=== PATIENT | male | born 1975 | race American Indian/Alaskan Native ===

== ENCOUNTER 2021-08-29 13:18 | Emergency (ER) | payer SELFPAY ==
[2021-08-29 13:44] VITALS: BP 149/87
--- NOTE | 2021-08-29 15:35 | Emergency Department Report ---
ED Dizziness HPI - General Chief Complaint: Headache Stated Complaint: HEADACHE Source: patient Mode of arrival: Ambulatory Limitations: No Limitations - History of Present Illness Initial Comments: Patient is a pleasant 46-year-old who comes to the ER complaining of dizziness. He states that it has been increasing over the last 9 days since his doctor increased his Coreg to 25 mg daily. He denies chest pain or shortness of breath. He got dizzy at work so they sent him home. MD Complaint: dizziness -: Gradual, days(s) Timing: gradual onset Description: other (Worse when changing position from lying to standing) History of Same: No History of Trauma: No Severity: mild Improves With: remaining still Worsens With: other (Standing) Associated Symptoms: denies other symptoms - Related Data Allergies Allergy/AdvReac Type Severity Reaction Status Date / Time No Known Allergies Allergy Verified 08/29/21 13:44 ED Review of Systems ROS: Stated complaint: HEADACHE Other details as noted in HPI Comment: All other systems reviewed and negative ED Past Medical Hx - Past Medical History Hx Hypertension: Yes - Surgical History Past Surgical History?: No - Family History Family history: no significant - Social History Smoking Status: Never Smoker Substance Use Type: None ED Physical Exam - General Limitations: No Limitations General appearance: alert, in no apparent distress - Head Head exam: Present: atraumatic, normocephalic - Eye Eye exam: Present: normal appearance - ENT ENT exam: Present: mucous membranes moist - Neck Neck exam: Present: normal inspection - Respiratory Respiratory exam: Present: normal lung sounds bilaterally. Absent: respiratory distress - Cardiovascular Cardiovascular Exam: Present: regular rate, normal rhythm. Absent: systolic murmur, diastolic murmur, rubs, gallop - GI/Abdominal GI/Abdominal exam: Present: soft, normal bowel sounds - Rectal Rectal exam: Present: deferred - Extremities Exam Extremities exam: Present: normal inspection - Back Exam Back exam: Present: normal inspection - Neurological Exam Neurological exam: Present: alert, oriented X3 - Psychiatric Psychiatric exam: Present: normal affect, normal mood - Skin Skin exam: Present: warm, dry, intact, normal color. Absent: rash ED Course Vital Signs 08/29/21 13:43 Temperature 98.7 F Pulse Rate 64 Respiratory 16 Rate Blood Pressure 149/87 [Right] O2 Sat by Pulse 98 Oximetry - Reevaluation(s) Reevaluation #1: 08/29/21 16:26 COREG 25 DAILY ED Medical Decision Making - Lab Data Result diagrams: 08/29/21 16:09 - EKG Data EKG shows normal: sinus rhythm Rate: normal - EKG Data When compared to previous EKG there are: no significant change Interpretation: no acute changes - Medical Decision Making Lab Results 08/29/21 Range/Units 16:09 WBC 4.2 L (4.5-11.0) K/mm3 RBC 4.91 (3.65-5.03) M/mm3 Hgb 13.8 (11.8-15.2) gm/dl Hct 42.0 (35.5-45.6) % MCV 86 (84-94) fl MCH 28 (28-32) pg MCHC 33 (32-34) % RDW 13.6 (13.2-15.2) % Plt Count 189 (140-440) K/mm3 Vital Signs 08/29/21 13:43 Temperature 98.7 F Pulse Rate 64 Respiratory 16 Rate Blood Pressure 149/87 [Right] O2 Sat by Pulse 98 Oximetry Heart rate on 12-lead was 58. 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 He had no chest pain or shortness of breath. Labs noted Patient being discharged home with discharge plan of care including diet, activity, medications and follow-up. I have given him primary care and cardiology referrals. He verbalizes understanding of plan of care - Differential Diagnosis VERTIGO/BRADYCARDIA Critical care attestation.: If time is entered above; I have spent that time in minutes in the direct care of this critically ill patient, excluding procedure time. ED Disposition Clinical Impression: Dizziness Disposition: 01 HOME / SELF CARE / HOMELESS Is pt being admited?: No Does the pt Need Aspirin: No Condition: Stable Instructions: Dizziness Additional Instructions: FOLLOW UP WITH PCP AND CARDIOLOGY REFERRALS BELOW STAY WELL HYDRATED WITH WATER ACTIVITY TOLERATED Referrals: MATT CAMARGO MD [Staff Physician] - 3-5 Days LAMIN CALDWELL MD [Primary Care Provider] - 3-5 Days Forms: Work/School Release Form(ED) Time of Disposition: 16:21
[2021-08-29 16:31] LABS: Hemoglobin 13.8 gm/dl (11.8-15.2); Mean Corpuscular HGB Conc 33 % (32-34); Mean Corpuscular Volume 86 fl (84-94); Platelet Count 189 K/mm3 (140-440); Red Blood Count 4.91 M/mm3 (3.65-5.03); Red Cell Distribution Width 13.6 % (13.2-15.2)
[2021-08-29 16:51] LABS: BUN/Creatinine Ratio 13; Blood Urea Nitrogen 12 mg/dL (9-20); Hemolysis Index 14
--- NOTE | 2021-08-31 10:21 | Electrocardiograph Report ---
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
== END 2021-08-29 17:44 | disposition home or self-care (01) ==
LOC: ED 13:18
DX: R42 Dizziness and giddiness (principal); I10 Essential (primary) hypertension
CPT/HCPCS: 36415; 80048; 84484; 85027; 93005; 99283